=== PATIENT | male | born 1975 | race Caucasian/White ===

== ENCOUNTER 2017-06-03 05:21 | Emergency (ER) | payer BC, OTHER ==
[2017-06-03 05:39] VITALS: BP 121/80; PULSE 76; TEMP 98; BMI 24.3
--- NOTE | 2017-06-03 05:40 | PDOC ---
History of Present Illness - General Chief Complaint: Toothache Stated Complaint: I WANT LIQUID ANTIBIOTICS Time Seen by Provider: 06/03/17 05:34 - History of Present Illness Initial Comments: 06/03/17 06:24 3 d s/p root canal on abx (amox) reports persistent swelling at site of procedure no fever/ chills reports difficulty opening mouth fully pmh: denies fhx: non-contrib ros: reviewed and otherwise negative o/e NAD no diaphoresis no intraoral infection submandibular edema without fluctuence or tenderness no adenopathy a/p post-op edema no acute infection Past History - Past Medical History Allergies/Adverse Reactions: Allergies Allergy/AdvReac Type Severity Reaction Status Date / Time No Known Allergies Allergy Unverified 06/03/17 05:22 Home Medications: Ambulatory Orders Amoxicillin - [Amoxicillin 500mg Capsule -] 500 mg PO TID 06/03/17 Ibuprofen [Advil -] 600 mg PO TID PRN 06/03/17 *DC/Admit/Observation/Transfer Diagnosis at time of Disposition: Atypical toothache - Discharge Dispostion Disposition: HOME Condition at time of disposition: Stable - Referrals - Patient Instructions Additional Instructions: Please follow-up with your dentist on Monday - Post Discharge Activity
== END 2017-06-03 05:43 | disposition home or self-care (01) ==
LOC: FER 05:21
DX: K08.89 Other specified disorders of teeth and supporting structures (principal)
CPT/HCPCS: 99282-25